=== PATIENT | male | born 1945 | race Caucasian/White ===

== ENCOUNTER 2017-05-25 04:11 | Inpatient (IN) | payer MEDICARE, OTHER ==
[~2017-05-25 04:11] MED LIST: ASA CHILDREN'S81 MG PO; DAILY MULTIPLE1 EAC1 PO; INSPRA25 MG PO; IRON325 M1 PO; KLOR-CON M2020 ME1 PO; LASIX DPS80 MG PO; LEXAPRO DPS20 MG PO; MAG-OX400 MG PO; PROVENTIL HFA6.7 GM IH; VIBRAMYCIN-DPS100 M2 PO; ZAROXOLYN5 MG PO
[2017-05-28] MEDS ORDERED: NEURONTIN DPS100 MG PO (18:00)
[2017-05-28] MEDS ORDERED: PROZAC DPS10 MG PO (18:00)
[2017-05-28] MEDS ORDERED: RESTORIL DPS30 MG PO (18:01)
[2017-05-28] MEDS ORDERED: IMDUR DPS60 MG PO (18:01)
[2017-05-28] MEDS ORDERED: XARELTO20 MG PO (18:01)
[2017-05-28] MEDS ORDERED: TAZTIA XT360 MG PO (18:02)
[2017-05-28] MEDS ORDERED: CARTIA XT120 MG PO (18:02)
[2017-05-28] MEDS ORDERED: ZYLOPRIM-DPS300 MG PO (18:02)
[2017-05-28] MEDS ORDERED: LIPITOR DPS10 MG PO (18:02)
[2017-05-28] MEDS ORDERED: INSPRA25 MG PO (18:02)
[2017-05-28] MEDS ORDERED: LASIX DPS80 MG PO (18:03)
[2017-05-28] MEDS ORDERED: ZESTRIL5 MG PO (18:03)
[2017-05-28] MEDS ORDERED: ATARAX-DPS25 MG PO (18:04)
[2017-05-28] MEDS ORDERED: TOPROL XL DPS50 MG PO (18:04)
[2017-05-28] MEDS ORDERED: FLONASE 0.05% D16 GM NS (18:05)
[2017-05-28] MEDS ORDERED: NYSTOP60 GM TP (18:05)
[2017-05-28] MEDS ORDERED: CLARITIN DPS10 MG PO (18:06)
[2017-05-28] MEDS ORDERED: TEMOVATE O.05%15 GM TP (18:06)
== END 2017-05-27 11:32 | disposition home or self-care (01) | DRG 292 ==
DX: I11.0 Hypertensive heart disease with heart failure (principal); N17.9 Acute kidney failure, unspecified; I95.9 Hypotension, unspecified; E80.1 Porphyria cutanea tarda; Z99.81 Dependence on supplemental oxygen; I48.2 Chronic atrial fibrillation; Z68.42 Body mass index [BMI] 45.0-49.9, adult; J44.9 Chronic obstructive pulmonary disease, unspecified; I50.33 Acute on chronic diastolic (congestive) heart failure; I25.10 Atherosclerotic heart disease of native coronary artery without angina pectoris; G51.0 Bell's palsy; E11.9 Type 2 diabetes mellitus without complications; E66.01 Morbid (severe) obesity due to excess calories; G47.33 Obstructive sleep apnea (adult) (pediatric); F32.9 Major depressive disorder, single episode, unspecified; E78.2 Mixed hyperlipidemia; R09.02 Hypoxemia; F41.9 Anxiety disorder, unspecified; K90.0 Celiac disease; Z95.5 Presence of coronary angioplasty implant and graft; Z95.0 Presence of cardiac pacemaker; Z96.659 Presence of unspecified artificial knee joint; Z79.01 Long term (current) use of anticoagulants; Z87.891 Personal history of nicotine dependence; Z79.82 Long term (current) use of aspirin